=== PATIENT | male | born 1985 | race African-American/Black ===

== ENCOUNTER 2018-01-14 02:10 | Inpatient (IN) | payer MEDICAID ==
[2018-01-14] MEDS: SOD CHLORIDE 0.9% 1,000 ML IV ×4 (04:02→23:57)
[2018-01-14] MEDS: ONDANSETRON 4 MG INJ IV (04:02)
[2018-01-14] MEDS: morphine 4 MG/ML VIAL IV (04:02)
[2018-01-14 04:04] LABS: ADD MAN DIFF? NO
[2018-01-14 04:07] LABS: WHITE BLOOD COUNT 5.9 10^3/ul (4.8-10.8)
[2018-01-14 04:07] LABS: BASOPHILS % 0.7 % (0.0-2.0); EOSINOPHILS # 0.1 10^3/ul (0.0-0.5); EOSINOPHILS % 1.9 % (0.0-7.0); HEMATOCRIT 42.8 % (42.0-52.0); HEMOGLOBIN 14.5 g/dl (14.0-18.0); LYMPHOCYTES # 1.1 10^3/ul (0.8-2.9); LYMPHOCYTES % 19.5 % (15.0-51.0); MEAN CORPUSCULAR HEMOGLOBIN 25.9 pg (29.0-33.0); MEAN CORPUSCULAR HGB CONC 33.9 g/dl (32.0-37.0); MEAN CORPUSCULAR VOLUME 76.6 fl (82.0-101.0); MEAN PLATELET VOLUME 10.5 fl (7.4-10.4); MONOCYTE # 0.5 10^3/ul (0.3-0.9); MONOCYTES % 9.2 % (0.0-11.0); NEUTROPHILS % 68.2 % (39.0-77.0); PLATELET COUNT 318 10^3/UL (140-415); RED BLOOD COUNT 5.59 10^6/ul (4.70-6.10); RED CELL DISTRIBUTION WIDTH 18.5 % (11.5-14.5)
[2018-01-14 04:20] LABS: ADD UMIC NO; UR ASCORBIC ACID 40 mg/dL (NEGATIVE); UR BILIRUBIN (Dip) 1+ mg/dL (NEGATIVE); UR BLOOD (Dip) NEGATIVE (NEGATIVE); UR CLARITY SLIGHTLY CLOUDY (CLEAR); UR COLOR AMBER (YELLOW); UR GLUCOSE (Dip) NEGATIVE (NEGATIVE); UR KETONES (Dip) NEGATIVE (NEGATIVE); UR LEUKOCYTE ESTERASE (Dip) NEGATIVE Leu/ul (NEGATIVE); UR MUCUS FEW /HPF (NONE SEEN); UR NITRITE (Dip) NEGATIVE (NEGATIVE); UR RBC 1 /HPF (0-5); UR SPECIFIC GRAVITY (Dip) 1.024 (1.003-1.030); UR TOTAL PROTEIN (Dip) NEGATIVE (NEGATIVE); UR UROBILINOGEN (Dip) 2+ mg/dL (NEGATIVE); UR WBC 1 /HPF (0-5)
[2018-01-14 04:25] LABS: ALBUMIN 4.7 g/dl (3.3-4.9); ALKALINE PHOSPHATASE 283 IU/L (42-121); ASPARTATE AMINO TRANSFERASE 729 IU/L (15-46); BILIRUBIN,INDIRECT 0.5 mg/dl (0-1.1); BILIRUBIN,TOTAL 0.5 mg/dl (0.2-1.3); BLOOD UREA NITROGEN 18 mg/dl (7-20); CALCIUM 9.9 mg/dl (8.4-10.2); CARBON DIOXIDE 29 mmol/L (21-31); CHLORIDE 103 mmol/L (97-110); CREATININE 1.07 mg/dl (0.61-1.24); GLUCOSE 82 mg/dl (70-220); LIPASE 94 U/L (23-300); SODIUM 144 mmol/L (135-144); TOTAL PROTEIN 9.4 g/dl (6.1-8.1)
[2018-01-14 04:27] LABS: ANION GAP 17 (8-16); POTASSIUM 4.6 mmol/L (3.5-5.1)
[2018-01-14 04:32] LABS: ALANINE AMINOTRANSFERASE 2277 IU/L (13-69)
[2018-01-14 04:35] LABS: INR 0.86; PROTIME 11.8 Sec (11.9-14.9); PT RATIO 0.9
[2018-01-14 04:36] LABS: PARTIAL THROMBOPLASTIN TIME 29.7 Sec (25.0-35.0)
[2018-01-14 06:11] LABS: HAAIG REFLEX REFLEX FILED
[2018-01-14] MEDS ORDERED: ACETAMINOPHEN 325 MG TAB PO ×2 (06:30→14:30)
[2018-01-14] MEDS ORDERED: NACL 0.9% 3 ML SYG IV ×2 (06:30→14:30)
[2018-01-14] MEDS ORDERED: ONDANSETRON 4 MG INJ IV ×2 (06:30→14:30)
[2018-01-14 07:30] LABS: HEPATITIS B SURFACE ANTIGEN POSITIVE (NEGATIVE)
[2018-01-14 07:34] LABS: HEPATITIS B CORE ANTIBODY REACTIVE (NEGATIVE); HEPATITIS C VIRAL ANTIBODY NEGATIVE (NEGATIVE)
[2018-01-14] MEDS: morphine 2 MG INJ IV (08:41)
[2018-01-14 09:58] LABS: ACETAMINOPHEN < 10.0 ug/ml (10.0-30.0); ETHANOL < 10.0 mg/dl
[2018-01-14 10:01] LABS: GAMMA GLUTAMYL TRANSPEPTIDASE 474 IU/L (0-50)
[2018-01-14 10:50] LABS: HEPATITIS C VIRAL ANTIBODY NEGATIVE (NEGATIVE)
[2018-01-14 10:51] LABS: HEPATITIS B SURFACE ANTIGEN POSITIVE (NEGATIVE)
[2018-01-14 12:47] LABS: CANNABINOIDS Negative (NEGATIVE)
[2018-01-14 13:01] LABS: HEPATITIS B SURFACE ANTIBODY NEGATIVE (NEGATIVE)
[2018-01-14 13:01] LABS: BARBITURATES Negative (NEGATIVE); BENZODIAZEPINES Negative (NEGATIVE); COCAINE Negative (NEGATIVE); OPIATES Negative (NEGATIVE)
[2018-01-14 13:04] LABS: AMPHETAMINE/METHAMPHETAMINE POSITIVE (NEGATIVE)
[2018-01-14] MEDS ORDERED: SOD CHLORIDE 0.45% 1,000 ML IV (14:20)
[2018-01-14] MEDS ORDERED: ALBUTEROL/IPRATROPIUM (NEB) 3 ML AMP HHN (14:30)
[2018-01-14] MEDS ORDERED: MAGNESIUM HYDROXIDE 30ML CUP PO (14:30)
[2018-01-14] MEDS ORDERED: NA PHOSPHATE/BIPHOS 133 ML ENEMA PR (14:30)
[2018-01-14] MEDS ORDERED: NITROGLYCERIN (SL) 0.4 MG TAB SL (14:30)
[2018-01-14] MEDS ORDERED: DOCUSATE SODIUM 100 MG CAP PO (14:30)
[2018-01-14] MEDS ORDERED: morphine 2 MG INJ IV (14:30)
[2018-01-14] MEDS ORDERED: hydrALAzine 20 MG INJ IV (14:30)
[2018-01-14 14:55] LABS: FREE T4 (FREE THYROXINE) 1.22 ng/dl (0.79-2.35)
[2018-01-14] MEDS: HYDROCODONE/APAP (5/325) TAB PO (19:47)
[2018-01-14] MEDS: HEPARIN 5,000 UNIT/0.5 ML VIAL SC (21:14)
[2018-01-14 22:05] LABS: HIV 1&2 ANTIBODY NEGATIVE (NEGATIVE)
[2018-01-15 04:53] LABS: ABNORMAL IP MESSAGE 1; HEMATOCRIT 35.3 % (42.0-52.0); HEMOGLOBIN 12.4 g/dl (14.0-18.0); MEAN CORPUSCULAR HEMOGLOBIN 26.6 pg (29.0-33.0); MEAN CORPUSCULAR HGB CONC 35.1 g/dl (32.0-37.0); MEAN CORPUSCULAR VOLUME 75.6 fl (82.0-101.0); MEAN PLATELET VOLUME 10.3 fl (7.4-10.4); PLATELET COUNT 293 10^3/UL (140-415); POSITIVE DIFF @See below; RED BLOOD COUNT 4.67 10^6/ul (4.70-6.10); RED CELL DISTRIBUTION WIDTH 17.1 % (11.5-14.5)
[2018-01-15 04:53] LABS: WHITE BLOOD COUNT 2.9 10^3/ul (4.8-10.8)
[2018-01-15 05:15] LABS: ANION GAP 14 (8-16); BLOOD UREA NITROGEN 10 mg/dl (7-20); CALCIUM 8.8 mg/dl (8.4-10.2); CARBON DIOXIDE 30 mmol/L (21-31); CHLORIDE 104 mmol/L (97-110); CREATININE 0.92 mg/dl (0.61-1.24); GLUCOSE 112 mg/dl (70-220); PHOSPHORUS 3.1 mg/dl (2.5-4.9); SODIUM 144 mmol/L (135-144)
[2018-01-15 05:31] LABS: ALBUMIN/GLOBULIN RATIO 0.94; ANION GAP 14 (8-16); CHOL/HDL RATIO 3.7 RATIO; LDL CHOLESTEROL,CALCULATED 66 mg/dl
[2018-01-15 05:53] LABS: ALANINE AMINOTRANSFERASE 1766 IU/L (13-69); ALBUMIN 3.2 g/dl (3.3-4.9); ALKALINE PHOSPHATASE 212 IU/L (42-121); ASPARTATE AMINO TRANSFERASE 632 IU/L (15-46); BILIRUBIN,INDIRECT 0.5 mg/dl (0-1.1); BILIRUBIN,TOTAL 0.8 mg/dl (0.2-1.3); BLOOD UREA NITROGEN 10 mg/dl (7-20); CALCIUM 8.8 mg/dl (8.4-10.2); CARBON DIOXIDE 30 mmol/L (21-31); CHLORIDE 104 mmol/L (97-110); CHOLESTEROL 115 mg/dl (100-200); CREATININE 0.92 mg/dl (0.61-1.24); GLUCOSE 111 mg/dl (70-220); HDL CHOLESTEROL 31 mg/dl (28-63); MAGNESIUM 1.8 mg/dl (1.7-2.5); POTASSIUM 4.1 mmol/L (3.5-5.1); SODIUM 144 mmol/L (135-144); TOTAL PROTEIN 6.6 g/dl (6.1-8.1); TRIGLYCERIDES 89 mg/dl (0-149)
[2018-01-15 06:01] LABS: HEMOGLOBIN A1C 5.2 % (0-5.9)
[2018-01-15 06:17] LABS: ADD MAN DIFF? YES
[2018-01-15 08:03] LABS: ANISOCYTOSIS 1+ (0-0); EOSINOPHILS % (M) 6 % (0-7); GIANT THROMBO% (M) 23 % (0-0); LYMPHOCYTES #M 1.2 10^3/ul (0.8-2.9); LYMPHOCYTES % (M) 43 % (15-51); MONOCYTE #M 0.3 10^3/ul (0.3-0.9); MONOCYTES % (M) 11 % (0-11); PLATELET ESTIMATE NORMAL; POIKILOCYTOSIS 2+ (0-0); REACTIVE LYMPHOCYTES #M 0.2 10^3/ul (0.0-0.0); REACTIVE LYMPHOCYTES% (M) 9 % (0-0); SEGMENTED NEUTROPHILS (M) % 31 % (39-77); SMUDGE%M 2 % (0-0)
[2018-01-15] MEDS: HEPARIN 5,000 UNIT/0.5 ML VIAL SC ×2 (08:39→22:31)
[2018-01-15 08:55] LABS: THYROID STIMULATING HORMONE 0.719 MIU/L (0.465-4.680)
[2018-01-15 11:34] LABS: IRON 297 ug/dl (35-150)
[2018-01-15 11:36] LABS: HEPATITIS B SURFACE ANTIGEN REACTIVE (NON-REACTIVE)
[2018-01-15 11:43] LABS: % IRON SATURATION 79 % SAT (22-52); TOTAL IRON BINDING CAPACITY 375 ug/dl (241-421)
[2018-01-15 12:20] LABS: INR 0.93; PARTIAL THROMBOPLASTIN TIME 34.6 Sec (25.0-35.0); PROTIME 12.6 Sec (11.9-14.9)
[2018-01-15 13:51] LABS: ANA SCREEN NEGATIVE (NEGATIVE)
[2018-01-15] MEDS: DOCUSATE SODIUM 100 MG CAP PO (14:28)
[2018-01-15] MEDS: SOD CHLORIDE 0.9% 1,000 ML IV (16:10)
[2018-01-15] MEDS: LORAZEPAM 2 MG INJ IV (22:40)
[2018-01-16] MEDS: DOCUSATE SODIUM 100 MG CAP PO ×2 (03:17→15:18)
[2018-01-16 06:09] LABS: ANION GAP 16 (8-16); BLOOD UREA NITROGEN 14 mg/dl (7-20); CALCIUM 9.2 mg/dl (8.4-10.2); CARBON DIOXIDE 27 mmol/L (21-31); CHLORIDE 103 mmol/L (97-110); CREATININE 1.07 mg/dl (0.61-1.24); GLUCOSE 112 mg/dl (70-220); POTASSIUM 3.8 mmol/L (3.5-5.1); SODIUM 142 mmol/L (135-144)
[2018-01-16] MEDS: HEPARIN 5,000 UNIT/0.5 ML VIAL SC ×2 (09:00→20:14)
[2018-01-16] MEDS: SOD CHLORIDE 0.9% 1,000 ML IV (09:48)
[2018-01-16 13:05] LABS: ALBUMIN 3.9 g/dl (3.3-4.9); ALKALINE PHOSPHATASE 241 IU/L (42-121); BILIRUBIN,INDIRECT 0.2 mg/dl (0-1.1); BILIRUBIN,TOTAL 0.2 mg/dl (0.2-1.3); TOTAL PROTEIN 7.5 g/dl (6.1-8.1)
[2018-01-16 13:13] LABS: ALANINE AMINOTRANSFERASE 2110 IU/L (13-69); ASPARTATE AMINO TRANSFERASE 740 IU/L (15-46)
[2018-01-16] MEDS: LORAZEPAM 2 MG INJ IV (16:58)
[2018-01-16] MEDS: HYDROCODONE/APAP (5/325) TAB PO (20:10)
[2018-01-16] MEDS: FAMOTIDINE 20 MG TAB PO (20:10)
[2018-01-17] MEDS: SOD CHLORIDE 0.9% 1,000 ML IV ×2 (02:48→20:11)
[2018-01-17] MEDS: DOCUSATE SODIUM 100 MG CAP PO ×3 (02:50→21:30)
[2018-01-17] MEDS: LORAZEPAM 2 MG INJ IV ×2 (05:28→22:31)
[2018-01-17 05:38] LABS: ADD MAN DIFF? NO
[2018-01-17 05:46] LABS: BASOPHILS % 0.4 % (0.0-2.0); EOSINOPHILS # 0.2 10^3/ul (0.0-0.5); HEMATOCRIT 37.1 % (42.0-52.0); HEMOGLOBIN 12.6 g/dl (14.0-18.0); LYMPHOCYTES # 1.6 10^3/ul (0.8-2.9); LYMPHOCYTES % 35.7 % (15.0-51.0); MEAN CORPUSCULAR HEMOGLOBIN 25.7 pg (29.0-33.0); MEAN CORPUSCULAR VOLUME 75.7 fl (82.0-101.0); MONOCYTE # 0.6 10^3/ul (0.3-0.9); MONOCYTES % 13.6 % (0.0-11.0); NEUTROPHILS % 44.6 % (39.0-77.0); PLATELET COUNT 329 10^3/UL (140-415); RED CELL DISTRIBUTION WIDTH 17.6 % (11.5-14.5)
[2018-01-17 05:46] LABS: WHITE BLOOD COUNT 4.6 10^3/ul (4.8-10.8)
[2018-01-17 06:06] LABS: ALBUMIN 3.5 g/dl (3.3-4.9); ALBUMIN/GLOBULIN RATIO 0.94; ALKALINE PHOSPHATASE 216 IU/L (42-121); ANION GAP 15 (8-16); ASPARTATE AMINO TRANSFERASE 677 IU/L (15-46); BILIRUBIN,INDIRECT 0.3 mg/dl (0-1.1); BILIRUBIN,TOTAL 0.3 mg/dl (0.2-1.3); BLOOD UREA NITROGEN 15 mg/dl (7-20); CARBON DIOXIDE 25 mmol/L (21-31); CHLORIDE 106 mmol/L (97-110); GLUCOSE 86 mg/dl (70-220); MAGNESIUM 1.6 mg/dl (1.7-2.5); POTASSIUM 4.2 mmol/L (3.5-5.1); SODIUM 142 mmol/L (135-144); TOTAL PROTEIN 7.2 g/dl (6.1-8.1)
[2018-01-17 06:16] LABS: ALANINE AMINOTRANSFERASE 1874 IU/L (13-69)
[2018-01-17] MEDS: FAMOTIDINE 20 MG TAB PO ×2 (09:20→21:30)
[2018-01-17] MEDS: HEPARIN 5,000 UNIT/0.5 ML VIAL SC ×2 (09:21→21:32)
[2018-01-17 11:11] LABS: MITOCHONDRIAL TB NEGATIVE (NEGATIVE); SMOOTH MUSCLE AB SCREEN NEGATIVE (NEGATIVE)
[2018-01-17] MEDS: MAGNESIUM SULFATE 2 GM/50 ML 50 ML IVPB (12:32)
[2018-01-17] MEDS: HYDROCODONE/APAP (5/325) TAB PO (21:35)
[2018-01-18 05:39] LABS: ADD MAN DIFF? NO
[2018-01-18 05:48] LABS: WHITE BLOOD COUNT 5.1 10^3/ul (4.8-10.8)
[2018-01-18 05:48] LABS: BASOPHILS % 0.6 % (0.0-2.0); EOSINOPHILS # 0.3 10^3/ul (0.0-0.5); EOSINOPHILS % 5.3 % (0.0-7.0); HEMATOCRIT 42.6 % (42.0-52.0); HEMOGLOBIN 13.9 g/dl (14.0-18.0); LYMPHOCYTES # 2.4 10^3/ul (0.8-2.9); LYMPHOCYTES % 47.9 % (15.0-51.0); MEAN CORPUSCULAR HEMOGLOBIN 25.7 pg (29.0-33.0); MEAN CORPUSCULAR HGB CONC 32.6 g/dl (32.0-37.0); MEAN CORPUSCULAR VOLUME 78.9 fl (82.0-101.0); MONOCYTE # 0.4 10^3/ul (0.3-0.9); MONOCYTES % 7.3 % (0.0-11.0); NEUTROPHIL # 1.9 10^3/ul (1.6-7.5); NEUTROPHILS % 38.3 % (39.0-77.0); PLATELET COUNT 234 10^3/UL (140-415); RED CELL DISTRIBUTION WIDTH 19.3 % (11.5-14.5)
[2018-01-18 08:26] LABS: ALBUMIN 3.6 g/dl (3.3-4.9); ALKALINE PHOSPHATASE 207 IU/L (42-121); ASPARTATE AMINO TRANSFERASE 672 IU/L (15-46); BILIRUBIN,INDIRECT 0.2 mg/dl (0-1.1); BILIRUBIN,TOTAL 0.2 mg/dl (0.2-1.3); TOTAL PROTEIN 6.8 g/dl (6.1-8.1)
[2018-01-18 08:36] LABS: ALANINE AMINOTRANSFERASE 1876 IU/L (13-69)
[2018-01-18 08:39] LABS: ALBUMIN 3.6 g/dl (3.3-4.9); ALBUMIN/GLOBULIN RATIO 1.02; ALKALINE PHOSPHATASE 208 IU/L (42-121); ANION GAP 13 (8-16); ASPARTATE AMINO TRANSFERASE 647 IU/L (15-46); BILIRUBIN,INDIRECT 0.2 mg/dl (0-1.1); BILIRUBIN,TOTAL 0.2 mg/dl (0.2-1.3); BLOOD UREA NITROGEN 12 mg/dl (7-20); CALCIUM 8.8 mg/dl (8.4-10.2); CARBON DIOXIDE 28 mmol/L (21-31); CHLORIDE 106 mmol/L (97-110); CREATININE 0.98 mg/dl (0.61-1.24); GLUCOSE 93 mg/dl (70-220); POTASSIUM 3.8 mmol/L (3.5-5.1); SODIUM 143 mmol/L (135-144); TOTAL PROTEIN 7.1 g/dl (6.1-8.1)
[2018-01-18] MEDS: FAMOTIDINE 20 MG TAB PO (08:51)
[2018-01-18] MEDS: HEPARIN 5,000 UNIT/0.5 ML VIAL SC (08:54)
[2018-01-18 08:58] LABS: ALANINE AMINOTRANSFERASE 1872 IU/L (13-69)
== END 2018-01-18 10:55 | disposition home or self-care (01) | DRG 443 ==
LOC: MS1 01-16 11:40 → E/R 02:10 → MS1 01-16 20:55 → MS3 06:29 → MS1 22:55
DX: B16.9 Acute hepatitis B without delta-agent and without hepatic coma (principal); F15.10 Other stimulant abuse, uncomplicated; D57.3 Sickle-cell trait; F31.9 Bipolar disorder, unspecified; R11.2 Nausea with vomiting, unspecified; F17.210 Nicotine dependence, cigarettes, uncomplicated; D64.9 Anemia, unspecified; D72.819 Decreased white blood cell count, unspecified
CPT/HCPCS: 36415; 74181; 76705; 80048; 80053; 80061; 80076; 80306; 80307; 81001; 81003; 82728; 82977; 83036; 83540; 83690; 83735; 84100; 84439; 84443; 85025; 85610; 85730; 86038; 86255; 86703; 86704; 86706; 86709; 86803; 87340; 96361; 96374; 96375; 96376; 99285-25

== ENCOUNTER 2018-02-02 00:18 | Inpatient (IN) | payer OTHER, MEDICAID ==
[2018-02-02] MEDS: ONDANSETRON (ODT) 4 MG TAB ODT (01:36)
[2018-02-02] MEDS: LOPERAMIDE 2 MG CAP PO (01:36)
[2018-02-02 01:58] LABS: ADD MAN DIFF? NO
[2018-02-02 02:03] LABS: BASOPHILS % 0.3 % (0.0-2.0); EOSINOPHILS # 0.1 10^3/ul (0.0-0.5); EOSINOPHILS % 2.3 % (0.0-7.0); HEMATOCRIT 44.2 % (42.0-52.0); HEMOGLOBIN 14.8 g/dl (14.0-18.0); LYMPHOCYTES # 0.9 10^3/ul (0.8-2.9); LYMPHOCYTES % 21.9 % (15.0-51.0); MEAN CORPUSCULAR HEMOGLOBIN 25.9 pg (29.0-33.0); MEAN CORPUSCULAR HGB CONC 33.5 g/dl (32.0-37.0); MEAN CORPUSCULAR VOLUME 77.4 fl (82.0-101.0); MEAN PLATELET VOLUME 9.6 fl (7.4-10.4); MONOCYTE # 0.5 10^3/ul (0.3-0.9); MONOCYTES % 11.3 % (0.0-11.0); NEUTROPHIL # 2.5 10^3/ul (1.6-7.5); NEUTROPHILS % 63.7 % (39.0-77.0); PLATELET COUNT 333 10^3/UL (140-415); RED BLOOD COUNT 5.71 10^6/ul (4.70-6.10); RED CELL DISTRIBUTION WIDTH 19.8 % (11.5-14.5)
[2018-02-02 02:18] LABS: ALBUMIN 4.2 g/dl (3.3-4.9); ALKALINE PHOSPHATASE 232 IU/L (42-121); ANION GAP 18 (8-16); BILIRUBIN,INDIRECT 1.2 mg/dl (0-1.1); BILIRUBIN,TOTAL 3.3 mg/dl (0.2-1.3); BLOOD UREA NITROGEN 17 mg/dl (7-20); CALCIUM 9.6 mg/dl (8.4-10.2); CARBON DIOXIDE 26 mmol/L (21-31); CHLORIDE 104 mmol/L (97-110); CREATININE 0.92 mg/dl (0.61-1.24); GLUCOSE 100 mg/dl (70-220); POTASSIUM 3.8 mmol/L (3.5-5.1); SODIUM 144 mmol/L (135-144); TOTAL PROTEIN 8.4 g/dl (6.1-8.1)
[2018-02-02 02:31] LABS: ASPARTATE AMINO TRANSFERASE 1339 IU/L (15-46)
[2018-02-02 02:55] LABS: ACETAMINOPHEN < 10.0 ug/ml (10.0-30.0); ETHANOL < 10.0 mg/dl; SALICYLATE < 1.0 mg/dl (5.0-30.0)
[2018-02-02 03:13] LABS: ALANINE AMINOTRANSFERASE 3186 IU/L (13-69)
[2018-02-02] MEDS: DEXTROSE 5%-0.45% NACL 1,000 ML IV ×2 (06:10→20:21)
[2018-02-02] MEDS: ARIPIPRAZOLE 10 MG TAB PO (09:55)
[2018-02-02] MEDS: FLUOXETINE 20 MG CAP PO (09:55)
[2018-02-02] MEDS: RISPERIDONE 1 MG TAB PO (09:56)
[2018-02-02] MEDS: METHYLPREDNISOLONE 125 MG INJ IV ×2 (09:56→20:21)
[2018-02-02] MEDS ORDERED: ACETAMINOPHEN 325 MG TAB PO (21:30)
[2018-02-03] MEDS: morphine 2 MG INJ IV ×2 (00:44→19:35)
[2018-02-03 05:37] LABS: ADD MAN DIFF? NO; HAAIG REFLEX REFLEX FILED
[2018-02-03 05:40] LABS: WHITE BLOOD COUNT 10.3 10^3/ul (4.8-10.8)
[2018-02-03 05:40] LABS: BASOPHILS % 0.1 % (0.0-2.0); EOSINOPHILS % 0.1 % (0.0-7.0); HEMATOCRIT 34.9 % (42.0-52.0); LYMPHOCYTES # 1.2 10^3/ul (0.8-2.9); LYMPHOCYTES % 11.1 % (15.0-51.0); MEAN CORPUSCULAR HEMOGLOBIN 26.1 pg (29.0-33.0); MEAN CORPUSCULAR HGB CONC 34.4 g/dl (32.0-37.0); MEAN PLATELET VOLUME 10.1 fl (7.4-10.4); MONOCYTE # 0.3 10^3/ul (0.3-0.9); MONOCYTES % 2.4 % (0.0-11.0); NEUTROPHIL # 8.9 10^3/ul (1.6-7.5); PLATELET COUNT 336 10^3/UL (140-415); RED BLOOD COUNT 4.59 10^6/ul (4.70-6.10); RED CELL DISTRIBUTION WIDTH 18.7 % (11.5-14.5)
[2018-02-03 06:37] LABS: ADD UMIC NO; UR ASCORBIC ACID 40 mg/dL (NEGATIVE); UR BILIRUBIN (Dip) 1+ mg/dL (NEGATIVE); UR BLOOD (Dip) NEGATIVE (NEGATIVE); UR CLARITY CLEAR (CLEAR); UR COLOR AMBER (YELLOW); UR GLUCOSE (Dip) NEGATIVE (NEGATIVE); UR KETONES (Dip) NEGATIVE (NEGATIVE); UR LEUKOCYTE ESTERASE (Dip) NEGATIVE Leu/ul (NEGATIVE); UR NITRITE (Dip) NEGATIVE (NEGATIVE); UR SPECIFIC GRAVITY (Dip) 1.023 (1.003-1.030); UR TOTAL PROTEIN (Dip) NEGATIVE (NEGATIVE); UR UROBILINOGEN (Dip) 2+ mg/dL (NEGATIVE)
[2018-02-03 06:42] LABS: ALBUMIN 3.5 g/dl (3.3-4.9); ALBUMIN/GLOBULIN RATIO 0.94; ALKALINE PHOSPHATASE 171 IU/L (42-121); ANION GAP 16 (8-16); ASPARTATE AMINO TRANSFERASE 723 IU/L (15-46); BILIRUBIN,INDIRECT 0.4 mg/dl (0-1.1); BILIRUBIN,TOTAL 0.7 mg/dl (0.2-1.3); BLOOD UREA NITROGEN 19 mg/dl (7-20); CALCIUM 9.1 mg/dl (8.4-10.2); CARBON DIOXIDE 28 mmol/L (21-31); CHLORIDE 103 mmol/L (97-110); CREATININE 0.96 mg/dl (0.61-1.24); GLUCOSE 151 mg/dl (70-220); POTASSIUM 3.9 mmol/L (3.5-5.1); SODIUM 143 mmol/L (135-144); TOTAL PROTEIN 7.2 g/dl (6.1-8.1)
[2018-02-03 06:50] LABS: ALANINE AMINOTRANSFERASE 2317 IU/L (13-69)
[2018-02-03 07:16] LABS: HEPATITIS B CORE ANTIBODY REACTIVE (NEGATIVE); HEPATITIS C VIRAL ANTIBODY NEGATIVE (NEGATIVE)
[2018-02-03 07:20] LABS: HEPATITIS B SURFACE ANTIGEN POSITIVE (NEGATIVE)
[2018-02-03 07:32] LABS: CANNABINOIDS Negative (NEGATIVE); OPIATES Positive (NEGATIVE)
[2018-02-03 07:44] LABS: BARBITURATES Negative (NEGATIVE); BENZODIAZEPINES Negative (NEGATIVE); COCAINE Negative (NEGATIVE)
[2018-02-03 07:45] LABS: AMPHETAMINE/METHAMPHETAMINE POSITIVE (NEGATIVE)
[2018-02-03] MEDS: METHYLPREDNISOLONE 125 MG INJ IV ×2 (09:09→20:38)
[2018-02-03] MEDS: ARIPIPRAZOLE 5 MG TAB PO (09:10)
[2018-02-03] MEDS: FLUOXETINE 20 MG CAP PO (09:11)
[2018-02-03] MEDS: DEXTROSE 5%-0.45% NACL 1,000 ML IV ×2 (09:20→23:02)
[2018-02-03] MEDS: DIPHENHYDRAMINE 25 MG CAP PO (21:53)
[2018-02-04 05:28] LABS: ADD MAN DIFF? NO
[2018-02-04 05:34] LABS: BASOPHILS % 0.1 % (0.0-2.0); HEMATOCRIT 34.7 % (42.0-52.0); HEMOGLOBIN 11.7 g/dl (14.0-18.0); LYMPHOCYTES # 1.4 10^3/ul (0.8-2.9); LYMPHOCYTES % 8.2 % (15.0-51.0); MEAN CORPUSCULAR HEMOGLOBIN 25.9 pg (29.0-33.0); MEAN CORPUSCULAR HGB CONC 33.7 g/dl (32.0-37.0); MEAN CORPUSCULAR VOLUME 76.8 fl (82.0-101.0); MEAN PLATELET VOLUME 10.2 fl (7.4-10.4); MONOCYTE # 0.7 10^3/ul (0.3-0.9); NEUTROPHILS % 86.8 % (39.0-77.0); PLATELET COUNT 354 10^3/UL (140-415); RED BLOOD COUNT 4.52 10^6/ul (4.70-6.10); RED CELL DISTRIBUTION WIDTH 19.2 % (11.5-14.5)
[2018-02-04 05:34] LABS: WHITE BLOOD COUNT 17.2 10^3/ul (4.8-10.8)
[2018-02-04 05:53] LABS: ALBUMIN 3.3 g/dl (3.3-4.9); ALKALINE PHOSPHATASE 148 IU/L (42-121); ANION GAP 17 (8-16); ASPARTATE AMINO TRANSFERASE 450 IU/L (15-46); BILIRUBIN,INDIRECT 0.1 mg/dl (0-1.1); BILIRUBIN,TOTAL 0.1 mg/dl (0.2-1.3); BLOOD UREA NITROGEN 20 mg/dl (7-20); CALCIUM 9.6 mg/dl (8.4-10.2); CARBON DIOXIDE 26 mmol/L (21-31); CHLORIDE 104 mmol/L (97-110); CREATININE 0.88 mg/dl (0.61-1.24); GLUCOSE 132 mg/dl (70-220); POTASSIUM 4.2 mmol/L (3.5-5.1); SODIUM 143 mmol/L (135-144); TOTAL PROTEIN 6.6 g/dl (6.1-8.1)
[2018-02-04 06:02] LABS: MAGNESIUM 1.6 mg/dl (1.7-2.5)
[2018-02-04 06:02] LABS: PHOSPHORUS 3.6 mg/dl (2.5-4.9)
[2018-02-04 06:04] LABS: ALANINE AMINOTRANSFERASE 1925 IU/L (13-69)
[2018-02-04] MEDS: ARIPIPRAZOLE 5 MG TAB PO (08:26)
[2018-02-04] MEDS: FLUOXETINE 20 MG CAP PO (08:26)
[2018-02-04] MEDS: METHYLPREDNISOLONE 125 MG INJ IV ×2 (08:26→20:56)
[2018-02-04] MEDS: DEXTROSE 5%-0.45% NACL 1,000 ML IV (12:42)
[2018-02-04] MEDS ORDERED: morphine LIQ (10 MG/5 ML) CUP PO (17:30)
[2018-02-04] MEDS: DIPHENHYDRAMINE 25 MG CAP PO (20:55)
[2018-02-05 07:05] LABS: ADD MAN DIFF? NO
[2018-02-05 07:08] LABS: BASOPHILS % 0.1 % (0.0-2.0); EOSINOPHILS % 0.1 % (0.0-7.0); HEMATOCRIT 36.6 % (42.0-52.0); HEMOGLOBIN 12.2 g/dl (14.0-18.0); LYMPHOCYTES % 10.5 % (15.0-51.0); MEAN CORPUSCULAR HEMOGLOBIN 25.7 pg (29.0-33.0); MEAN CORPUSCULAR HGB CONC 33.3 g/dl (32.0-37.0); MEAN CORPUSCULAR VOLUME 77.2 fl (82.0-101.0); MEAN PLATELET VOLUME 10.5 fl (7.4-10.4); NEUTROPHIL # 15.9 10^3/ul (1.6-7.5); PLATELET COUNT 387 10^3/UL (140-415); RED BLOOD COUNT 4.74 10^6/ul (4.70-6.10); RED CELL DISTRIBUTION WIDTH 19.7 % (11.5-14.5)
[2018-02-05 07:08] LABS: WHITE BLOOD COUNT 19.4 10^3/ul (4.8-10.8)
[2018-02-05 07:32] LABS: ALBUMIN 3.4 g/dl (3.3-4.9); ALKALINE PHOSPHATASE 143 IU/L (42-121); ANION GAP 16 (8-16); ASPARTATE AMINO TRANSFERASE 301 IU/L (15-46); BILIRUBIN,INDIRECT 0.1 mg/dl (0-1.1); BILIRUBIN,TOTAL 0.1 mg/dl (0.2-1.3); BLOOD UREA NITROGEN 21 mg/dl (7-20); CALCIUM 9.6 mg/dl (8.4-10.2); CARBON DIOXIDE 28 mmol/L (21-31); CHLORIDE 105 mmol/L (97-110); CREATININE 0.94 mg/dl (0.61-1.24); GLUCOSE 121 mg/dl (70-220); POTASSIUM 3.8 mmol/L (3.5-5.1); TOTAL PROTEIN 6.8 g/dl (6.1-8.1)
[2018-02-05 07:36] LABS: INR 0.94; PROTIME 12.7 Sec (11.9-14.9)
[2018-02-05 07:46] LABS: ALANINE AMINOTRANSFERASE 1604 IU/L (13-69)
[2018-02-05 07:47] LABS: SODIUM 145 mmol/L (135-144)
[2018-02-05] MEDS: FLUOXETINE 20 MG CAP PO (09:36)
[2018-02-05] MEDS: ARIPIPRAZOLE 5 MG TAB PO (09:36)
[2018-02-05] MEDS: METHYLPREDNISOLONE 125 MG INJ IV (09:39)
[2018-02-05 17:50] LABS: OCCULT BLOOD STOOL NEGATIVE (NEGATIVE)
[2018-02-06 12:08] LABS: CYTOMEGALOVIRUS ANTIBODY (IGM) <30.00 AU/mL
== END 2018-02-05 18:55 | disposition home or self-care (01) | DRG 442 ==
LOC: MS2 02-05 06:13 → E/R 00:18 → MS2 03:54
DX: B16.9 Acute hepatitis B without delta-agent and without hepatic coma (principal); F31.9 Bipolar disorder, unspecified; D57.3 Sickle-cell trait; B18.1 Chronic viral hepatitis B without delta-agent; F15.10 Other stimulant abuse, uncomplicated; R45.851 Suicidal ideations; R45.850 Homicidal ideations
CPT/HCPCS: 36415; 80053; 80306; 80307; 81003; 82105; 82270; 83735; 84100; 85025; 85610; 86644; 86692; 86704; 86709; 86803; 87340; 99285-25

== ENCOUNTER 2018-02-14 12:17 | Emergency (ER) | payer OTHER ==
[2018-02-14] MEDS: LIDOCAINE 1% (MDV) 10 ML INJ INFIL (14:25)
[2018-02-14] MEDS: DIPHTH/TET/ACEL PERTUSS (ADULT) 0.5 ML VIAL IM* (14:27)
[2018-02-14] MEDS: IBUPROFEN 800 MG TAB PO (14:27)
== END 2018-02-14 15:42 | disposition home or self-care (01) ==
LOC: FTE 12:17
DX: S01.511A Laceration without foreign body of lip, initial encounter (principal); F17.210 Nicotine dependence, cigarettes, uncomplicated; Y04.0XXA Assault by unarmed brawl or fight, initial encounter; Z23 Encounter for immunization
CPT/HCPCS: 12011; 90471; 90715; 99283-25